=== PATIENT | female | born 1985 | race African-American/Black ===

== ENCOUNTER 2021-10-04 12:24 | Emergency (ER) | payer SELFPAY ==
[~2021-10-04] VITALS: Ht 172.7 cm; Wt 60.0 kg
[2021-10-04 14:12] LABS: BASOPHILS % 0.3 % (0.0-2.0); EOSINOPHILS % 0.2 % (0.0-5.0); HEMATOCRIT. 44.3 % (36.0-48.0); HEMOGLOBIN. 15.1 g/dL (12.0-16.0); LYMPHOCYTES % 20.7 % (20.0-50.0); MEAN CORPUSCULAR HEMOGLOBIN 29.7 pg (28.0-32.0); MEAN CORPUSCULAR VOLUME 86.8 fL (81.0-99.0); MEAN PLATELET VOLUME 7.1 fl (7.4-10.4); NEUTROPHILS % 69.8 % (40.0-76.0); PLATELET 247 x1000/uL (130-400); RED CELL DISTRIBUTION WIDTH 12.7 % (11.6-14.6)
[2021-10-04 14:24] LABS: CHLORIDE 105 mEq/L (98-107)
[2021-10-04 14:29] LABS: ETHANOL BLOOD < 10 mg/dL
[2021-10-04 14:33] LABS: CREATINE KINASE 87 IU/L (26-192)
[2021-10-04 15:00] LABS: HCG SCREEN NEGATIVE
[2021-10-04 16:50] LABS: CLARITY URINE CLEAR (CLEAR); COLOR URINE YELLOW (YELLOW); KETONES URINE 4+ (NEGATIVE); LEUKOCYTE ESTERASE URINE NEGATIVE (NEGATIVE); NITRITE URINE NEGATIVE (NEGATIVE); OCCULT BLOOD URINE NEGATIVE (NEGATIVE); PH URINE 5.5 (4.5-8.0); PROTEIN URINE 1+ (NEGATIVE); SPECIFIC GRAVITY URINE 1.031 (1.005-1.030); UROBILINOGEN URINE 0.2 E.U./dL (0.2-1.0)
[2021-10-04 17:21] LABS: *COCAINE SCREEN URINE NEGATIVE (NEGATIVE); OPIATES URINE SCREEN NEGATIVE (NEGATIVE); PHENCYCLIDINE URINE SCREEN NEGATIVE (NEGATIVE)
[2021-10-04 17:23] LABS: *AMPHETAMINES SCREEN URINE PRESUMTIVE POSITIVE (NEGATIVE); *BENZODIAZEPINES SCREEN URINE PRESUMTIVE POSITIVE (NEGATIVE); CANNABINOID URINE SCREEN PRESUMTIVE POSITIVE (NEGATIVE)
[2021-10-04] MEDS ORDERED: LORAZEPAM 1MG TABLET PO ONE (21:30)
[2021-10-05] MEDS ORDERED: LAMOTRIGINE 100MG TABLET PO SCH (09:00)
[2021-10-05] MEDS: FLUOXETINE HCL 10 MG CAPSULE PO SCH (09:51)
[2021-10-05] MEDS ORDERED: LORAZEPAM 1MG TABLET PO PRN ×2 (15:15→22:30)
[2021-10-05 17:10] LABS: *BARBITURATES SCREEN URINE NEGATIVE (NEGATIVE)
[2021-10-05 17:11] LABS: METHADONE URINE SCREEN NEGATIVE (NEGATIVE)
[2021-10-05] MEDS: LAMOTRIGINE 25MG TABLET PO SCH (21:34)
[2021-10-06] MEDS: FLUOXETINE HCL 10 MG CAPSULE PO SCH (11:40)
[2021-10-06] MEDS: LAMOTRIGINE 25MG TABLET PO SCH (11:40)
[2021-10-06 14:00] VITALS: BP 110/66
== END 2021-10-06 14:36 | disposition home or self-care (01) ==
LOC: ER 12:24
DX: T50.912A Poisoning by multiple unspecified drugs, medicaments and biological substances, intentional self-harm, initial encounter (principal); Y92.9 Unspecified place or not applicable; Z20.822 Contact with and (suspected) exposure to COVID-19
CPT/HCPCS: 36415; 70450; 80053; 80305; 80307; 80320; 80329; 81003; 82550; 84703; 85025; 99285; C9803; U0003; U0005; Z7610; G0480